=== PATIENT | male | born 1975 | race Caucasian/White ===

== ENCOUNTER 2016-09-03 10:50 | Emergency (ER) | payer OTHER ==
[2016-09-03 11:19] LABS: BASO % 0.6 % (0.2-1.2); EOS # 0.2 10_X3_uL (0.0-0.5); EOS % 2.2 % (0.8-7.0); HEMATOCRIT 50.7 % (40-51); HEMOGLOBIN 17.9 g/dL (13.7-17.5); LYMPH # 1.9 10_X3_uL (1.3-3.6); LYMPH % 28.3 % (21.8-53.1); MEAN CORPUSCULAR HEMOGLOBIN 32.1 pg (27.0-33.0); MEAN CORPUSCULAR HGB CONC 35.3 g/dL (32.0-36.0); MEAN PLATELET VOLUME 10.6 fl (7.5-11.5); MONO # 0.6 10_X3_uL (0.3-0.8); MONO % 8.9 % (5.3-12.2); PLATELET COUNT 288 x10_3/uL (163-337); RED BLOOD COUNT 5.57 x10_6/uL (4.6-6.1); WHITE BLOOD COUNT 6.7 x10_3/uL (4.2-9.1)
[2016-09-03 11:37] LABS: ALBUMIN 4.5 gm/dL (3.4-5.0); ALKALINE PHOSPHATASE 74 U/L (50-136); ALT/SGPT 44 U/L (7.53-40.17); AST/SGOT 32 U/L (6.66-35.34); BLOOD UREA NITROGEN 6 mg/dL (7-18); CALCIUM 9.3 mg/dL (8.7-10.7); CARBON DIOXIDE 22 mmol/L (21-32); CREATINE KINASE 160 U/L (35-232); CREATININE 0.7 mg/dL (0.6-1.3); GLUCOSE,RANDOM 131 mg/dL (70-99); POTASSIUM 3.5 mmol/L (3.5-5.1); SODIUM 135 mmol/L (136-145); TOTAL PROTEIN 7.2 gm/dL (6.4-8.2)
== END 2016-09-03 14:33 | disposition home or self-care (01) ==
LOC: ER 10:50
PROVIDERS: Emergency Medicine
DX: R07.89 Other chest pain (principal); M54.6 Pain in thoracic spine; E78.5 Hyperlipidemia, unspecified; I10 Essential (primary) hypertension; Z95.5 Presence of coronary angioplasty implant and graft; F17.210 Nicotine dependence, cigarettes, uncomplicated; Z79.899 Other long term (current) drug therapy; Z79.02 Long term (current) use of antithrombotics/antiplatelets
CPT/HCPCS: 36415; 71260; 80053; 82550; 82553; 85025; 93005; 96374; 99070; 99285-25; J1170; J7040; Q9967